=== PATIENT | male | born 1960 | race Hispanic/Latino ===

== ENCOUNTER → 2018-05-19 | Outpatient (CLI) | payer MEDICARE ==
[~2018-05-19] MED LIST: ALBUTEROL SULF8.5 GM INH; AMLODIPINE BESYL5 MG PO; ASPIRIN325 MG PO; AVODART0.5 MG PO; BUPROPION XL150 MG PO; DOXYCYCLINE HY100 MG PO; EXFORGE 10-3201 EACH PO; FLOMAX0.4 MG PO; FLUOXETINE HCL20 MG PO; GABAPENTIN300 MG PO; HYDRALAZINE HCL25 MG PO; IOPAMIDOL 370 MG/ML 200 ML INFUS..BTL INJ ONE; KLOR-CON 1010 MEQ PO; LASIX40 MG PO; LEVAQUIN500 MG PO; LISINOPRIL10 MG PO; LISINOPRIL40 MG PO; METFORMIN HCL500 MG PO; METOPROLOL SUC200 MG PO; METOPROLOL SUCC50 MG PO; OXYCODON-ACETA1 EAC2 PO; PENICILLIN PO; PREDNISONE10 MG PO; PREDNISONE20 MG PO; PROSCAR5 MG PO; SERTRALINE HCL50 MG PO; SIMVASTATIN20 MG PO; SODIUM CHLORIDE 0.9% 50ML 50 ML ONE; SYMBICORT 80-10.2 GM INH; TYLENOL WITH C1 EACH PO; VITAMIN D250000 UNIT PO
[2018-05-19 17:37] LABS: BLOOD UREA NITROGEN 15 mg/dL (7-26); BUN/CREATININE RATIO 15 (6-25); CREATININE, SERUM 1.02 mg/dL (0.72-1.25); EST GLOMERULAR FILTRATION RATE > 60 ML/MIN (60-)
--- NOTE | 2018-05-19 17:54 | Diagnostic Imaging Report ---
PROCEDURE: Frontal and lateral views of the chest. COMPARISON: 06/18/17 INDICATIONS: RENAL CANCER FINDINGS: Lines/tubes: Stable triple lead left chest wall cardiac device. Lungs: The lungs are well inflated. There is no evidence of pneumonia or pulmonary edema. Mild bibasilar subsegmental atelectasis. Pleura: There is no pleural effusion or pneumothorax. Heart and mediastinum: The cardiac silhouette is borderline enlarged. The aorta is tortuous. Bones: No acute bony abnormality. IMPRESSION: 1. No acute cardiopulmonary disease. 2. No significant change from prior exam. Dictated by: Denzel Day M.D. on 05/19/2018 at 17:57 Electronically approved by: Denzel Day M.D. on 05/19/2018 at 17:57
--- NOTE | 2018-05-19 18:51 | Diagnostic Imaging Report ---
EXAM: CT Abdomen and Pelvis WITHOUT and WITH contrast INDICATION: History of renal cancer. \[id number] \S\[id number] COMPARISON: CT dated 12/12/2016. Renal ultrasound dated 09/18/2017. TECHNIQUE: Abdomen and pelvis were scanned utilizing a multidetector helical scanner from the lung base to the pubic symphysis before and after administration of IV contrast. Coronal and sagittal reformations were obtained. Renal mass protocol was performed. Scan was performed pre-, nephrographic, and 4 minute delayed phase. IV CONTRAST: 100 mL of Isovue-370 ORAL CONTRAST: Water COMPLICATIONS: None RADIATION DOSE: Total DLP: 2063.20 mGy*cm Estimated effective dose: (DLP x 0.015 x size factor) mSv CTDIvol has been reviewed. It is below the limits set by the Radiation Protocol Committee (RPC). FINDINGS: LINES and TUBES: Distal leads of cardiac device are visualized, terminating in right atrium and right ventricle. Posterior left base calcified granuloma. LOWER THORAX: Unremarkable HEPATOBILIARY: No focal hepatic lesions. No biliary ductal dilation. GALLBLADDER: Surgically absent. SPLEEN: No splenomegaly. PANCREAS: No focal masses or ductal dilatation. ADRENALS: No adrenal nodules KIDNEYS/URETERS: Kidneys enhance symmetrically. No hydronephrosis. Status post partial left nephrectomy. No evidence of recurrent disease. Few left renal subcentimeter hypodensities are too small to characterize (0.8 and 0.6 cm on series 7, images 63 and 58). No renal mass. 2.6 cm right renal midpole cyst without evidence of enhancement. There is unchanged adjacent 1.1 cm coarse cortical calcification. 4 mm right inferior pole calculus. Collecting System: Patent Renal Artery: Patent Renal Vein: Patent IVC: Patent GI TRACT: No abnormal distention, wall thickening, or evidence of bowel obstruction. There are diverticula within the colon without evidence of diverticulitis. Fluid within distal esophagus, suggestive of gastroesophageal reflux. PELVIC ORGANS/BLADDER: Prostate is enlarged measuring 6.5 cm in transverse diameter. LYMPH NODES: No lymphadenopathy. VESSELS: There is mild atherosclerotic disease in the aorta and major arterial branches. PERITONEUM / RETROPERITONEUM: No free air or fluid. BONES: Lumbar spine scoliosis with multilevel degenerative changes. SOFT TISSUES: Bilateral fat-containing inguinal hernia. Small fat-containing umbilical hernia. Postsurgical left retroperitoneal areas of fat necrosis for example on series 7, image 48 IMPRESSION: 1. Postsurgical changes of partial left nephrectomy without evidence of recurrent or metastatic disease in the abdomen/pelvis. 2. Few nonspecific subcentimeter left renal hypodensities which are too small to characterize. Recommend attention on follow-up examination. 3. Stable right renal midpole cyst with adjacent coarse calcification. 4. 4 mm right inferior pole nonobstructive renal calculus. 5. Enlarged prostate gland. Signed by: Dr. Denzel Day MD on 05/19/2018 6:47 PM
== END ==
LOC: CT 16:29
PROVIDERS: ATTEND Urology
DX: C64.2 Malignant neoplasm of left kidney, except renal pelvis (principal); N28.1 Cyst of kidney, acquired
CPT/HCPCS: 36415; 71046; 74178; 82565; 84520; Q9967

== ENCOUNTER → 2020-06-24 | Outpatient (CLI) | payer MEDICARE ==
[~2020-06-24] MED LIST changes: -IOPAMIDOL 370 MG/ML 200 ML INFUS..BTL INJ ONE; -SODIUM CHLORIDE 0.9% 50ML 50 ML ONE
[2020-06-24 08:11] LABS: BLOOD UREA NITROGEN 14 mg/dL (7-26); BUN/CREATININE RATIO 14 (6-25); CREATININE, SERUM 1.03 mg/dL (0.72-1.25); EST GLOMERULAR FILTRATION RATE > 60 ML/MIN (60-)
--- NOTE | 2020-06-24 10:12 | Diagnostic Imaging Report ---
EXAM: CT Abdomen and Pelvis WITHOUT and WITH contrast INDICATION: ^[id number] ^[id number] ^MALIG NEOP LT KIDNEY COMPARISON: CT abdomen/pelvis 05/19/2018 TECHNIQUE: Abdomen and pelvis were scanned utilizing a multidetector helical scanner from the lung base to the pubic symphysis before and after administration of IV contrast. Coronal and sagittal reformations were obtained. Renal mass protocol was performed. Scan was performed pre-, nephrographic, and 4 minute delayed phase. IV CONTRAST: 100 mL of Isovue-370 ORAL CONTRAST: Water COMPLICATIONS: None RADIATION DOSE: Total DLP: 2121 mGy*cm CTDIvol has been reviewed. It is below the limits set by the Radiation Protocol Committee (RPC). FINDINGS: LINES and TUBES: Pacer leads partially visualized. LOWER THORAX: Minimal bibasilar subsegmental atelectasis. No focal lung base consolidation. HEPATOBILIARY: No focal hepatic lesions. No biliary ductal dilation. GALLBLADDER: Surgically absent. SPLEEN: No splenomegaly. PANCREAS: No focal masses or ductal dilatation. ADRENALS: No adrenal nodules KIDNEYS/URETERS: Kidneys enhance symmetrically. No hydronephrosis. No solid renal mass lesions. Unchanged subcentimeter left renal hypodensities are too small to characterize but likely represent cysts. No renal mass. 3.1 cm right renal midpole cyst without evidence of enhancement. There is unchanged adjacent 1 cm coarse cortical calcification. 4 mm right lower pole nonobstructive calculus. Delayed images demonstrate opacification of the entire course of both ureters without filling defect to suggest urothelial lesion. GI TRACT: No abnormal distention, wall thickening, or evidence of bowel obstruction. Diverticulosis without CT evidence of diverticulitis. Status post appendectomy. PELVIC ORGANS/BLADDER: Unchanged prostatomegaly. LYMPH NODES: No lymphadenopathy. VESSELS: Scattered atherosclerotic calcifications of the nonaneurysmal abdominal aorta and major branches. PERITONEUM / RETROPERITONEUM: No free air or fluid. BONES: Unchanged levoconvex lumbar spine curvature with multilevel degenerative changes. SOFT TISSUES: Bilateral fat-containing inguinal hernia. Small fat-containing umbilical hernia. IMPRESSION: 1. No solid renal mass lesions. No evidence of metastatic disease in the abdomen or pelvis. 2. Bilateral renal cysts. 3. 4 mm right lower pole nonobstructive renal calculus. 4. Unchanged prostatomegaly. Signed by: Alli Dominique MD on 06/24/2020 10:08 AM
== END ==
LOC: CT 07:16
PROVIDERS: ATTEND Urology
DX: C64.2 Malignant neoplasm of left kidney, except renal pelvis (principal)
CPT/HCPCS: 36415; 74178; 82565; 84520; 93970

== ENCOUNTER → 2023-03-08 | Day surgery (SDC) | payer MEDICARE ==
[2023-03-05 10:32] LABS: BASOPHILS % 0.7 % (0.0-1.0); EOSINOPHILS # (AUTO) 0.3 (0.0-0.4); HEMATOCRIT 33.1 % (38.2-49.6); HEMOGLOBIN 10.7 g/dL (14.0-18.0); LYMPHOCYTES # (AUTO) 1.9 (1.0-3.2); LYMPHOCYTES % 35.5 % (18.0-39.1); MEAN CORPUSCULAR HEMOGLOBIN 30.1 pg (28-32); MEAN CORPUSCULAR HGB CONC 32.3 g/dL (31-35); MONOCYTES # (AUTO) 0.5 (0.2-0.8); MONOCYTES % 8.9 % (4.4-11.3); NEUTROPHILS # (AUTO) 2.7 (2.1-6.9); NEUTROPHILS % 49.5 % (38.7-80.0); PLATELET COUNT 160 x10e3/uL (140-360); RED BLOOD COUNT 3.56 x10e6/uL (4.3-5.7); RED CELL DISTRIBUTION WIDTH 13.7 % (11.7-14.4)
[2023-03-05 10:49] LABS: ANION GAP 12.6 mmol/L (8-16); CALCIUM 8.8 mg/dL (8.4-10.2); CREATININE, SERUM 0.79 mg/dL (0.72-1.25); POTASSIUM 3.6 mmol/L (3.5-5.1)
[~2023-03-08] MED LIST changes: +ACETAMINOPHEN 1000 MG/100 ML 100 ML IV ONE; +ASPIRIN81 MG PO; +CALCIUM600 MG PO; +CEFTRIAXONE 1 GM VIAL ONE; +CYMBALTA30 MG PO; +FENTANYL CITRATE/PF 100MCG/2 ML INJ ONE; +FERROUS SULFAT325 MG PO; +FINASTERIDE5 MG PO; +FUROSEMIDE40 MG PO; +IOPAMIDOL 610MG/1ML 300 MG/ML VIAL IV ONE; +K-DUR10 MEQ PO; +LACTATED RINGER'S 1,000 ML ONE; +LIDOCAINE HCL 2% LOCAL INJ 5 ML SDV VIAL INJ ONE; +ONDANSETRON HCL INJ 2MG/ML 2ML 2 MG/ML VIAL ONE; +PANTOPRAZOLE SO40 MG PO; +PHENAZOPYRIDINE HCL 100 MG TAB ONE; +POVIDONE IODINE 0.05% 0.05 % ML PO ONE; +PROPOFOL IV EMULSION 10 MG/ML 20 ML VIAL ONE; +SEVOFLURANE INHAL SOLN 250 ML PEN BTL ONE; +SUCRALFATE1 GM PO; +[UNRECOGNIZED DRUG - OTHER] PO
[2023-03-08 12:50] VITALS: BP 129/80
== END | disposition home or self-care (01) ==
LOC: OR 08:41
PROVIDERS: ATTEND Urology
DX: N20.0 Calculus of kidney (principal); N39.0 Urinary tract infection, site not specified; N40.1 Benign prostatic hyperplasia with lower urinary tract symptoms; N13.8 Other obstructive and reflux uropathy; Z85.528 Personal history of other malignant neoplasm of kidney; Z90.5 Acquired absence of kidney; I10 Essential (primary) hypertension; J44.9 Chronic obstructive pulmonary disease, unspecified; G47.30 Sleep apnea, unspecified; M19.90 Unspecified osteoarthritis, unspecified site; F32.A Depression, unspecified; Z01.810 Encounter for preprocedural cardiovascular examination; Z01.812 Encounter for preprocedural laboratory examination; Z01.818 Encounter for other preprocedural examination; Z79.82 Long term (current) use of aspirin; Z79.899 Other long term (current) drug therapy; Z95.0 Presence of cardiac pacemaker; Z98.890 Other specified postprocedural states
CPT/HCPCS: 36415 ×2; 50590; 52332; 74018; 80048; 82948; 83970; 84550; 85025; 93005; C1758; C1874; J0131; J0696; J2001; J2405; J2704; J3010; J7121; Q9967

== ENCOUNTER → 2023-04-10 | Day surgery (SDC) | payer MEDICARE ==
[2023-04-08 15:08] LABS: BASOPHILS % 0.4 % (0.0-1.0); EOSINOPHILS # (AUTO) 0.2 (0.0-0.4); EOSINOPHILS % 2.7 % (0.0-6.0); HEMATOCRIT 35.6 % (38.2-49.6); HEMOGLOBIN 11.5 g/dL (14.0-18.0); LYMPHOCYTES # (AUTO) 2.2 (1.0-3.2); LYMPHOCYTES % 32.4 % (18.0-39.1); MEAN CORPUSCULAR HGB CONC 32.3 g/dL (31-35); MONOCYTES # (AUTO) 0.6 (0.2-0.8); MONOCYTES % 8.7 % (4.4-11.3); NEUTROPHILS # (AUTO) 3.8 (2.1-6.9); NEUTROPHILS % 55.5 % (38.7-80.0); PLATELET COUNT 167 x10e3/uL (140-360); RED BLOOD COUNT 3.83 x10e6/uL (4.3-5.7); RED CELL DISTRIBUTION WIDTH 13.3 % (11.7-14.4)
[2023-04-08 15:25] LABS: ANION GAP 11.2 mmol/L (8-16); CALCIUM 8.9 mg/dL (8.4-10.2); CREATININE, SERUM 0.79 mg/dL (0.72-1.25); POTASSIUM 4.2 mmol/L (3.5-5.1)
[~2023-04-10] MED LIST changes: -ACETAMINOPHEN 1000 MG/100 ML 100 ML IV ONE; +DEXAMETHASONE SOD PHOS INJ 4 MG/ML SDV ONE; +GENTAMICIN SULFATE 40 MG/ML 2 ML VIAL ONE; -PHENAZOPYRIDINE HCL 100 MG TAB ONE
[2023-04-10 09:51] VITALS: TEMP 98.4
[2023-04-10 10:45] VITALS: BP 141/80; PULSE 63; RESP 16; O2SAT 98
== END | disposition home or self-care (01) ==
LOC: OR 05:54
PROVIDERS: ATTEND Urology
DX: N20.0 Calculus of kidney (principal); N35.912 Unspecified bulbous urethral stricture, male; Z46.6 Encounter for fitting and adjustment of urinary device; N28.89 Other specified disorders of kidney and ureter; N40.1 Benign prostatic hyperplasia with lower urinary tract symptoms; N13.8 Other obstructive and reflux uropathy; G47.33 Obstructive sleep apnea (adult) (pediatric); Z85.528 Personal history of other malignant neoplasm of kidney; J44.9 Chronic obstructive pulmonary disease, unspecified; I10 Essential (primary) hypertension; E78.5 Hyperlipidemia, unspecified; K21.9 Gastro-esophageal reflux disease without esophagitis; E11.9 Type 2 diabetes mellitus without complications; F32.A Depression, unspecified; Z01.812 Encounter for preprocedural laboratory examination; Z01.818 Encounter for other preprocedural examination; Z79.82 Long term (current) use of aspirin; Z79.899 Other long term (current) drug therapy; Z95.810 Presence of automatic (implantable) cardiac defibrillator; Z98.890 Other specified postprocedural states
CPT/HCPCS: 36415 ×2; 52356; 74018; 74420; 80048; 82948; 84550; 85025; 88300; J0696; J1100; J1580; J2001; J2405; J2704; J3010; J7121; Q9967; C1766; C1769; C1874

== ENCOUNTER → 2023-06-05 | Outpatient (CLI) | payer MEDICARE ==
[~2023-06-05] MED LIST changes: -CEFTRIAXONE 1 GM VIAL ONE; -DEXAMETHASONE SOD PHOS INJ 4 MG/ML SDV ONE; -FENTANYL CITRATE/PF 100MCG/2 ML INJ ONE; -GENTAMICIN SULFATE 40 MG/ML 2 ML VIAL ONE; +IOPAMIDOL 370 MG/ML 100 ML INFUS..BTL INJ ONE; -IOPAMIDOL 610MG/1ML 300 MG/ML VIAL IV ONE; -LACTATED RINGER'S 1,000 ML ONE; -LIDOCAINE HCL 2% LOCAL INJ 5 ML SDV VIAL INJ ONE; -ONDANSETRON HCL INJ 2MG/ML 2ML 2 MG/ML VIAL ONE; -POVIDONE IODINE 0.05% 0.05 % ML PO ONE; -PROPOFOL IV EMULSION 10 MG/ML 20 ML VIAL ONE; -SEVOFLURANE INHAL SOLN 250 ML PEN BTL ONE
[2023-06-05 14:39] LABS: CREATININE, SERUM 0.86 mg/dL (0.72-1.25)
== END ==
LOC: CT 13:41
PROVIDERS: ATTEND Urology
DX: C64.2 Malignant neoplasm of left kidney, except renal pelvis (principal); N20.0 Calculus of kidney
CPT/HCPCS: 36415; 74178; 82565; 84520; Q9967

== ENCOUNTER → 2023-07-19 | Day surgery (SDC) | payer MEDICARE ==
[2023-07-17 13:14] LABS: BASOPHILS % 0.5 % (0.0-1.0); EOSINOPHILS # (AUTO) 0.2 (0.0-0.4); EOSINOPHILS % 3.1 % (0.0-6.0); HEMATOCRIT 37.2 % (38.2-49.6); HEMOGLOBIN 11.7 g/dL (14.0-18.0); LYMPHOCYTES % 26.6 % (18.0-39.1); MEAN CORPUSCULAR HGB CONC 31.5 g/dL (31-35); MEAN CORPUSCULAR VOLUME 95.4 fL (81-99); MONOCYTES # (AUTO) 0.6 (0.2-0.8); MONOCYTES % 7.7 % (4.4-11.3); NEUTROPHILS # (AUTO) 4.6 (2.1-6.9); PLATELET COUNT 153 x10e3/uL (140-360); RED CELL DISTRIBUTION WIDTH 14.5 % (11.7-14.4); WHITE BLOOD COUNT 7.45 x10e3/uL (4.8-10.8)
[2023-07-17 13:38] LABS: ALBUMIN 4.1 g/dL (3.5-5.0); ALBUMIN/GLOBULIN RATIO 1.6 (0.8-2.0); ANION GAP 14.2 mmol/L (8-16); CALCIUM 9.7 mg/dL (8.4-10.2); CREATININE, SERUM 0.96 mg/dL (0.72-1.25); POTASSIUM 4.2 mmol/L (3.5-5.1)
[~2023-07-19] MED LIST changes: +CEFTRIAXONE 1 GM VIAL ONE; +DEXAMETHASONE SOD PHOS INJ 4 MG/ML SDV ONE; +DOCUSATE SODIU100 MG PO; +FENTANYL CITRATE/PF 100MCG/2 ML INJ ONE; +FOLIC ACID0.4 MG PO; +GENTAMICIN 80MG/NS 100 ML 200 ML IV ONE; +GLYCOPYRROLATE INJ 0.2 MG/ML VIAL ONE; -IOPAMIDOL 370 MG/ML 100 ML INFUS..BTL INJ ONE; +IOPAMIDOL 610MG/1ML 300 MG/ML VIAL IV ONE; +LACTATED RINGER'S 1,000 ML ONE; +LIDOCAINE HCL 2% LOCAL INJ 5 ML SDV VIAL INJ ONE; +MAGNESIUM OXID400 MG PO; +MIDAZOLAM HCL 2 MG/2 ML VIAL ONE; +ONDANSETRON HCL INJ 2MG/ML 2ML 2 MG/ML VIAL ONE; +POVIDONE IODINE 0.05% 0.05 % ML PO ONE; +PROPOFOL IV EMULSION 10 MG/ML 20 ML VIAL ONE; +SEVOFLURANE INHAL SOLN 250 ML PEN BTL ONE
[2023-07-19 12:45] VITALS: BP 132/80; PULSE 64; RESP 17; O2SAT 100
== END | disposition home or self-care (01) ==
LOC: OR 09:30
PROVIDERS: ATTEND Urology
DX: N13.39 Other hydronephrosis (principal); Z46.6 Encounter for fitting and adjustment of urinary device; Z87.442 Personal history of urinary calculi; N28.89 Other specified disorders of kidney and ureter; I10 Essential (primary) hypertension; G47.33 Obstructive sleep apnea (adult) (pediatric); K21.9 Gastro-esophageal reflux disease without esophagitis; F32.A Depression, unspecified; K76.9 Liver disease, unspecified; D64.9 Anemia, unspecified; Z85.528 Personal history of other malignant neoplasm of kidney; Z90.5 Acquired absence of kidney; Z01.812 Encounter for preprocedural laboratory examination; Z01.818 Encounter for other preprocedural examination; Z79.82 Long term (current) use of aspirin; Z79.899 Other long term (current) drug therapy; Z95.0 Presence of cardiac pacemaker
CPT/HCPCS: 36415 ×2; 52351; 74018; 74420; 80053; 82948; 84550; 85025; 87086; C1766; C1769; J0696; J1100; J1580; J2001; J2250; J2405; J2704; J3010; J7121; Q9967